=== PATIENT | male | born 1980 | race Two or more races ===

== ENCOUNTER 2021-09-25 14:19 | Emergency (ER) | payer OTHER ==
[~2021-09-25] VITALS: Ht 177.8 cm; Wt 108.9 kg
[2021-09-25 14:21] VITALS: BP 140/90
== END 2021-09-25 17:01 | disposition left against medical advice (07) ==
LOC: ER 14:19
DX: M25.511 Pain in right shoulder (principal); Z53.21 Procedure and treatment not carried out due to patient leaving prior to being seen by health care provider
CPT/HCPCS: 73030